=== PATIENT | male | born 1955 | race Caucasian/White ===

== ENCOUNTER → 2016-12-16 | Outpatient (CLI) | payer BC ==
[~2016-12-16] MED LIST: 24 HOUR ALLER15.8 ML BOTH NARES; ALDACTONE25 MG PO; BUSPAR30 MG PO; CIALIS20 MG PO; CRESTOR20 MG PO; LISINOPRIL-HCT1 EAC3 PO; NAPROSYN500 MG PO; NORVASC10 MG PO; ULTRAM50 MG PO; ZANTAC150 MG PO
[2016-12-16 09:09] LABS: HEMATOCRIT 38.4 % (38.0-50.0); MCH 26.1 PG (29.0-34.0); MCV 81.4 FL (86-99); MEAN PLAT.VOLUME 9.2 uM^3 (9.0-12.4); PLATELET COUNT 267 K/uL (156-360); RBC DIS.WIDTH-CV 12.7 % (11.8-14.6); RBC DIS.WIDTH-SD 37.8 % (39-53); RED BLOOD COUNT 4.72 M/uL (4.00-5.50); WHITE BLOOD COUNT 6.1 K/uL (4.1-10.2)
[2016-12-16 09:27] LABS: PROTHROMBIN TIME 10.6 (9.2-11.2); PTT 26.8 (25-32)
== END | disposition home or self-care (01) ==
LOC: OPR 08:00 → EDSTATUS 09:00
PROVIDERS: Radiology Diagnostic Radiology
DX: M85.68 Other cyst of bone, other site (principal); M54.5 Low back pain; M79.605 Pain in left leg; I10 Essential (primary) hypertension; E78.5 Hyperlipidemia, unspecified
CPT/HCPCS: 77012; 85027; 85610; 85730; 88173; 88305; J3010

== ENCOUNTER 2018-03-07 11:53 | Day surgery (SDC) | payer BC ==
[~2018-03-07] VITALS: Ht 180.3 cm; Wt 104.5 kg
[~2018-03-07 11:53] MED LIST changes: +ATIVAN0.5 MG PO; +ATIVAN1 MG PO; +BACLOFEN10 MG PO; +CELEBREX200 MG PO; +CLARITIN,ALAVAR10 MG PO; +HYDROCODON-ACE1 EAC7 PO; +LEXAPRO10 MG PO
[2018-03-07 12:42] VITALS: BP 122/82
[2018-03-07 23:20] VITALS: BP 130/77
[2018-03-08 04:49] VITALS: BP 135/91
[2018-03-08] MEDS ORDERED: BACLOFEN10 MG PO (07:20)
[2018-03-08] MEDS ORDERED: HYDROCODON-ACE1 EAC7 PO (07:20)
[2018-03-08 07:41] VITALS: BP 131/84
== END 2018-03-08 14:05 | disposition home or self-care (01) ==
LOC: SDC 11:53 → 2SOUTH 21:26 → 3EAST 21:26 → ENRESERV 22:21 → 3EAST 22:58
PROC: 0RG4070 Fusion of Cervicothoracic Vertebral Joint with Autologous Tissue Substitute, Anterior Approach, Anterior Column, Open Approach (ICD-10-PCS; principal; 2018-03-07)
DX: M50.13 Cervical disc disorder with radiculopathy, cervicothoracic region (principal); M47.812 Spondylosis without myelopathy or radiculopathy, cervical region; M48.02 Spinal stenosis, cervical region; M43.17 Spondylolisthesis, lumbosacral region; M47.816 Spondylosis without myelopathy or radiculopathy, lumbar region; I10 Essential (primary) hypertension; K21.9 Gastro-esophageal reflux disease without esophagitis
CPT/HCPCS: 72020; 72040; 76000; 80048; 85027; 93005; C1713; G0378; J0131; J0690; J1100; J1170; J2250; J2405; J2710; J3010; J3480; J7643